=== PATIENT | male | born 1955 | race Two or more races ===

== ENCOUNTER → 2024-06-08 | Outpatient (CLI) | payer OTHER, SELFPAY ==
--- NOTE | 2024-06-08 13:00 | ECHO_ITS ---
Transthoracic Echo Report Ht (in): 65 Wt (lb): 165 Exam Location: Echo Lab Status: Preadmit Convention Manager: Ashley Delarosa Indications: Procedure Performed: BP: / HR: Rhythm: Sinus Technical Quality: Fair MEASUREMENTS (Male / Female) Normal Values 2D ECHO LV Diastolic Diameter PLAX 4.8 cm 4.2 - 5.9 / 3.9 - 5.3 cm LV Systolic Diameter PLAX 3.4 cm IVS Diastolic Thickness 0.9 cm 0.6 - 1.0 / 0.6 - 0.9 cm LVPW Diastolic Thickness 1.0 cm 0.6 - 1.0 / 0.6 - 0.9 cm LV Relative Wall Thickness 0.4 LVOT Diameter 2.0 cm LA Volume Index 27.5 cm?/m? 16 - 28 cm?/m? Ascending Aorta Diameter 3.6 cm M-MODE Aortic Root Diameter MM 2.8 cm LA Systolic Diameter MM 3.7 cm LA Ao Ratio MM 1.3 AV Cusp Separation MM 2.1 cm DOPPLER AV Peak Velocity 161.0 cm/s AV Peak Gradient 10.4 mmHg AV Mean Gradient 5.0 mmHg AV Velocity Time Integral 40.4 cm AI Peak Velocity 498.5 cm/s AI Peak Gradient 99.4 mmHg AI Pressure Half Time 469.5 ms LVOT Peak Velocity 109.0 cm/s LVOT Peak Gradient 4.8 mmHg LVOT Velocity Time Integral 25.7 cm AV Area Cont Eq vti 2.0 cm? AV Area Cont Eq pk 2.1 cm? MV Peak Velocity 86.1 cm/s MV Peak Gradient 3.0 mmHg MV Mean Velocity 45.2 cm/s MV Mean Gradient 1.0 mmHg MV Area PHT 3.2 cm? Mitral E Point Velocity 71.3 cm/s Mitral A Point Velocity 77.1 cm/s Mitral E to A Ratio 0.9 LV E' Lateral Velocity 10.6 cm/s Mitral E to LV E' Lateral Ratio 6.7 LV E' Septal Velocity 7.2 cm/s Mitral E to LV E' Septal Ratio 9.9 FINDINGS Left Ventricle Normal left ventricular size, wall thickness, systolic function with no obvious regional wall motion abnormalities. The ejection fraction is visually estimated at 55-60 %. Right Ventricle The right ventricle is normal in size and systolic function. Left Atrium The left atrium is normal by two-dimensional, color flow and Doppler imaging with no structural abnormalities, no thrombus formation present. Right Atrium The right atrium is normal by two-dimensional imaging, color flow and Doppler imaging with no struct ural abnormalities, no thrombus formation present. Atrial Septum The interatrial septum appears normal with no evidence of a shunt. Aorta The aorta is normal by two-dimensional, color flow and Doppler interrogation. Mitral Valve The mitral valve is normal by two-dimensional, color flow and Doppler interrogation. There is mild mitral valve regurgitation. Aortic Valve The aortic valve is trileaflet and normal by two-dimensional, color flow and Doppler interrogation. There is mild aortic valve regurgitation. Tricuspid Valve The tricuspid valve is normal by two-dimensional, color flow and Doppler interrogation. There is tra ce tricuspid valve regurgitation. Pulmonic Valve There is no significant pulmonic valve regurgitation. Vessels The pulmonary artery appears normal. The inferior vena cava pulmonary and hepatic veins appear emmanuel l. Pericardium The pericardium is normal by two-dimensional imaging. There is no significant pericardial effusion. CONCLUSIONS Indication: Edema Normal LV size and function. Estimated EF 55-60% Normal RV size and function Mild MR, AI. Trace TR. Hepatic cyst present. Christopher Morales (Electronically Signed) Final Date: 08 June 2024 18:58
--- NOTE | 2024-06-08 13:45 | XR_ITS ---
Examination: PA lateral chest 2 views TECHNIQUE: Upright PA lateral chest 2 views Exam date and time: June 08, 2024 1402 hours INDICATIONS: Edema chest pain today FINDINGS: Normal heart size Lungs are clear. The osseous structures are intact IMPRESSION: No active disease
== END | disposition home or self-care (01) ==
LOC: SDIM 13:06
PROVIDERS: PCP Family Medicine; Referring Provider Family Medicine; Visit Provider Family Medicine
DX: I08.3 Combined rheumatic disorders of mitral, aortic and tricuspid valves (principal); R07.2 Precordial pain
CPT/HCPCS: 71046; 93306